=== PATIENT | male | born 1965 | race Caucasian/White ===

== ENCOUNTER 2017-12-21 10:07 | Day surgery (SDC) | payer OTHER ==
[~2017-12-21 10:07] MED LIST: PROPOFOL 200 MG INJ
[2017-12-21] MEDS ORDERED: PROPOFOL 80 ML (11:05)
[2017-12-21] MEDS ORDERED: LIDOCAINE 2% (SDV) 5 ML INJ (11:06)
== END 2017-12-21 12:55 | disposition home or self-care (01) ==
LOC: GIL 10:07
DX: Z12.11 Encounter for screening for malignant neoplasm of colon (principal); D12.3 Benign neoplasm of transverse colon; K64.8 Other hemorrhoids; E66.9 Obesity, unspecified; Z68.36 Body mass index [BMI] 36.0-36.9, adult
CPT/HCPCS: 45385; 88305